=== PATIENT | male | born 1985 | race Two or more races ===

== ENCOUNTER → 2022-11-23 | Emergency (ER) | payer BC ==
[~2022-11-23] VITALS: Ht 177.8 cm; Wt 70.3 kg
[~2022-11-23] MED LIST: SULF1TAB48 PO
[2022-11-23 13:08] VITALS: BP 122/64; TEMP 98.4; O2SAT 100
== END | disposition home or self-care (01) ==
LOC: ER 12:33
DX: K64.8 Other hemorrhoids (principal); K61.0 Anal abscess; Z60.2 Problems related to living alone